=== PATIENT | female | born 1995 | race Two or more races ===

== ENCOUNTER → 2024-06-26 | Outpatient (CLI) | payer MEDICAID ==
[2024-06-26 15:44] LABS: Basophils # (auto) 0 10 ^3/uL (0-0.2); Basophils % (auto) 0.1 % (0.0-2.0); Eosinophils # (auto) 0 10 ^3/uL (0-0.8); Eosinophils % (auto) 0.3 % (0.0-7.0); Hematocrit 34.4 % (36.0-46.0); Hemoglobin 11.9 g/dL (12.2-16.2); Lymphocytes # (auto) 1.5 10 ^3/uL (0.4-5.4); Lymphocytes % (auto) 17.5 % (10.0-50.0); Mean Corpuscular Hgb Conc. 34.5 g/dL (32.0-36.0); Monocytes # (auto) 0.4 10 ^3/uL (0-1.3); Monocytes % (auto) 4.1 % (0.0-12.0); Neutrophils # (auto) 6.7 10 ^3/uL (1.6-8.6); Nucleated Red Blood Cells % 0.1 %; Platelet Count (auto) 281 10^3/uL (140-450); Red Blood Cells 4.09 10^6/uL (4.0-5.20); Red Cell Distribution Width 14.8 % (11.8-14.3); White Blood Cell 8.6 10^3/uL (4.4-10.8)
[2024-06-26 16:15] LABS: Cannabinoid Screen, Urine Neg (NEGATIVE)
[2024-06-26 16:16] LABS: Alanine Aminotransferase 24 U/L (7-40); Alkaline Phosphatase 68 U/L (46-116); Amphetamine Screen, Urine Neg (NEGATIVE); Anion Gap 10 (5-15); BUN/Creatinine Ratio 13.6 (10.0-20.0); Barbiturate Scree,Urine Neg (NEGATIVE); Benzodiazephine Screen, Urine Neg (NEGATIVE); Calcium 9.4 mg/dL (8.7-10.4); Carbon Dioxide 21 mmol/L (20-31); Chloride 106 mmol/L (98-107); Cocaine Screen, Urine Neg (NEGATIVE); Opiate Scree,Urine Neg (NEGATIVE); Phencyclidine Screen, Urine Neg (NEGATIVE); Potassium 3.6 mmol/L (3.5-5.1); Sodium 137 mmol/L (136-145)
[2024-06-26 16:17] LABS: Albumin 4.1 g/dL (3.2-4.8); Aspartate Aminotransferase 21 U/L (13-40); Total Protein 6.9 g/dL (5.7-8.2)
[2024-06-26 16:18] LABS: Bilirubin, Total 0.5 mg/dL (0.2-1.0)
[2024-06-26 16:20] LABS: Thyroid Stimulating Hormone 1.08 uIU/mL (0.55-4.78)
[2024-06-26 16:26] LABS: Blood Urea Nitrogen 6 mg/dL (9-23); Glucose 119 mg/dL (74-106)
[2024-06-26 16:32] LABS: Beta HCG, Quantitative 44955.6 mIU/mL (1.5-4.2)
[2024-06-26 17:21] LABS: Triglycerides 129 mg/dL (< 150)
[2024-06-26 17:23] LABS: Cholesterol 198 mg/dL (< 200)
[2024-06-26 18:15] LABS: HDL Cholesterol 74 mg/dL (40-59); LDL Cholesterol 105 mg/dL (< 100)
[2024-06-27 07:07] LABS: Varicella Zoster IgG Antibody Non Reactive (Non Reactive)
[2024-06-27 08:07] LABS: RPR Non Reactive (Non Reactive)
[2024-06-28 02:07] LABS: Chlamydia Trachomatis, NAA Negative (Negative); Neisseria gonorrhoeae, NAA Negative (Negative)
== END | disposition home or self-care (01) ==
LOC: LAB 14:51
PROVIDERS: ATTEND Obstetrics & Gynecology
DX: O23.40 Unspecified infection of urinary tract in pregnancy, unspecified trimester (principal); Z31.430 Encounter of female for testing for genetic disease carrier status for procreative management; N39.0 Urinary tract infection, site not specified; Z3A.00 Weeks of gestation of pregnancy not specified
CPT/HCPCS: 36415; 80053; 80061; 80307; 83036; 84439; 84443; 84702; 85025; 86592; 86703; 86762; 86780; 86787; 86850; 86900; 86901; 87086; 87340; 87902

== ENCOUNTER 2024-09-11 05:53 | Emergency (ER) | payer MEDICAID ==
[~2024-09-11] VITALS: Ht 157.5 cm; Wt 103.5 kg
--- NOTE | 2024-09-11 06:29 | ED.PDOC ---
Eye-HPI HPI Comments 29 y/o F, STEPHIE, presents to the ED for CC of flu-like symptoms. Patient states, she has been experiencing flu-like symptoms which include: cough, nasal congestion, right-sided earache, and headache x1day. Patient reports, that she is currently x25 weeks . Patient denies nausea, vomiting, fever, chest pain, or shortness of breath. No other symptoms or modifying factors present at this time. Chief Complaint: Flu like Time Seen by MD: 06:25 Reviewed Notes: Nurses Notes, Medications, Allergies Allergies: Coded Allergies: NO KNOWN ALLERGIES (Unverified , 09/11/24) Information Source: Patient Mode of Arrival: EMS Timing: Days Duration: Since onset Quality: Pain Lids: Normal Conjunctiva: Normal Cornea: Normal Pupils: Normal EOM: Normal Fundus: Normal Slit lamp exam: Normal Anterior chamber: Normal Mouth: Normal ENT Ear Exam: Normal Nose: Normal Sinuses: Normal Oropharynx: Normal Onset: Spontaneous Throat Exposed to: None Last Tetanus: Unknown Associated signs and symptoms: Nasal Symptoms, Ear Pain Past Medical History PAST MEDICAL HISTORY: Denies Surgical History: Denies all surgeries EFFICIENCY ENGINEER History: Denies all EFFICIENCY ENGINEER Hx Family History Family History: Unknown Social History Smoker: Non-Smoker Alcohol: Denies ETOH Use Drugs: Denies Drug Use Lives In: Home Constitutional: denies: chills, diaphoresis, fatigue, fever, malaise, sweats, weakness, others EENTM: reports: ear pain (right sided), nose congestion; denies: blurred vision, double vision, ear bleeding, ear discharge, ear drainage, ear ringing, eye pain, eye redness, hearing loss, mouth pain, mouth swelling, nasal discharge, nose bleeding, nose pain, photophobia, tearing, throat pain, throat swelling, voice changes, others Respiratory: reports: cough; denies: hemoptysis, orthopnea, SOB at rest, shortness of breath, SOB with excertion, stridor, wheezing, others Cardiovascular: denies: chest pain, dizzy spells, diaphoresis, Dyspnea on exertion, edema, irregular heart beat, left arm pain, lightheadedness, palpitations, PND, syncope, others Gastrointestinal: denies: abdomen distended, abdominal pain, blood streaked bowels, constipated, diarrhea, dysphagia, difficulty swallowing, hematemesis, melena, nausea, poor appetite, poor fluid intake, rectal bleeding, rectal pain, vomiting, others Genitourinary: denies: abnormal vagina bleeding, burning, dyspareunia, dysuria, flank pain, frequency, hematuria, incontinence, pain, , vagina discharge, urgency, others Neurological: reports: headache; denies: dizziness, fainting, left sided numbness, left sided weakness, numbness, paresthesia, pre-existing deficit, right sided numbness, right sided weakness, seizure, speech problems, tingling, tremors, weakness, others Musculoskeletal: denies: back pain, gout, joint pain, joint swelling, muscle pain, muscle stiffness, neck pain, others Integumetry: denies: bruises, change in color, change in hair/nails, dryness, laceration, lesions, lumps, rash, wounds, others Allergic/Immunocompromised: denies: Difficulty Healing, Frequent Infections, Hives, Itching, others Hematologic/Lymphatic: denies: anemia, blood clots, easy bleeding, easy bruising, swollen glands, others Endocrine: denies: excessive hunger, excessive sweating, excessive thirst, excessive urination, flushing, intolerance to cold, intolerance to heat, unexplained weight gain, unexplained weight loss, others Psychiatric: denies: anxiety, bipolar disorder, depression, hopeless, panic disorder, schizophrenia, sleepless, suicidal, others All Other Systems: Reviewed and Negative Physical Exam General Appearance: No Apparent Distress, Normal, Other () HEENT: Normal ENT Inspection, Pharynx Normal Neck: Full Range of Motion, Non-Tender, Normal, Normal Inspection Respiratory: Chest Non-Tender, Lungs Clear, No Accessory Muscle Use, No Respiratory Distress, Normal Breath Sounds Cardiovascular: No Edema, No Murmur, No Gallop, Normal Peripheral Pulses, Regular Rate/Rhythm Breast Exam: Deferred Gastrointestinal: No Organomegaly, Non Tender, No Pulsatile Mass, Normal Bowel Sounds, Soft Genitalia: Deferred Pelvic: Deferred, Other () Rectal: Deferred Extremities: No calf tenderness, Normal capillary refill, Normal inspection, Normal range of motion, Non-tender, No pedal edema Musculoskeletal : Apperance: Normal Neurologic: Alert, 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 Was a procedure done?: No EENT DIFF Eye: N/A Ear: Otitis Externa, Otitis Media, Pharyngitis, Sinusitis Sore Throat: Viral Pharyngitis, URI X-Ray, Labs, Meds, VS Vital Signs Date Time Temp Pulse Resp B/P (MAP) Pulse Ox O2 Delivery O2 Flow Rate FiO2 09/11/24 07:37 98.0 09/11/24 07:32 98.0 102 16 119/71 (87) 98 98.0 09/11/24 07:32 102 16 98 Room Air 09/11/24 05:53 98.6 103 12 123/79 (94) 97 98.6 Current Medications Medications (Trade) Dose Ordered Sig/Shalini Route Start Time Stop Time Status Last Admin Acetaminophen (Tylenol Tablet) 650 mg ONCE ONCE PO 09/11/24 07:15 09/11/24 07:17 DC 09/11/24 07:37 Time of 1ST Reevaluation: 06:55 Reevaluation 1ST: Unchanged Patient Education/Counseling: Diagnosis, Treatment Family Education/Counseling: No Family Present SEPSIS Sepsis Screen Date sepsis recognized/suspect: Sep 11, 2024 Time Sepsis recognized/suspect: 0553 Recent Procedure: No On Antibiotic Therapy: No Respiratory Rate >20: No Heart Rate >90: No Temp<36 C (96.8 F) or >38.3 C: No SBP <90 or MAP <65 mmHG: No New Acute Mental Status Change: No Is the patient on CPAP, BIPAP,: No Vital Signs Date Time Temp Pulse Resp B/P (MAP) Pulse Ox O2 Delivery O2 Flow Rate FiO2 09/11/24 07:37 98.0 09/11/24 07:32 98.0 102 16 119/71 (87) 98 98.0 09/11/24 07:32 102 16 98 Room Air 09/11/24 05:53 98.6 103 12 123/79 (94) 97 98.6 Medications Medications Dose Ordered Sig/Shalini Route Start Time Stop Time Status Last Admin Dose Admin Acetaminophen 650 mg ONCE ONCE PO 09/11/24 07:15 09/11/24 07:17 DC 09/11/24 07:37 Departure 1 Departure Time of Disposition: 08:30 (Patient likely with a viral syndrome. We will discharge patient home with outpatient follow up) Impression: Primary Impression: Acute viral syndrome Additional Impression: Qualified Codes: Z34.90 - Encounter for supervision of normal , unspecified, unspecified trimester Disposition: 01 HOME / SELF CARE / HOMELESS Condition: Stable Additional Instructions: You likely have a viral illness. It is important to stay well rested and well hydrated. You can take Tylenol as needed for pain and fever. For a sore throat you can drink warm tea with honey. You can take [id number] pseudoephedrine for nasal congestion. He should follow up with your regular doctor within 1 week to ensure you are doing better. If your symptoms worsen or you have any other concerns please return to the emergency room. Discharged With: Self Critical Care Note Critical Care Time?: No Stability Stability form required: No Heart Score Heart Score: Heart Score Response (Comments) Value History N/A 0 EKG N/A 0 Age N/A 0 Risk Factors N/A 0 Troponin N/A 0 Total 0 I personally scribed for ELIA KABA MD ([email or web address]) on 09/11/24 at 06:29. Electronically submitted by Jess Fine ([email or web address]). I personally scribed for ELIA KABA MD ([email or web address]) on 09/11/24 at 06:41. Electronically submitted by Jess Fine ([email or web address]). ELIA KABA MD Sep 11, 2024 06:29
[2024-09-11] MEDS: ACETAMINOPHEN 325 MG TAB PO ONE (07:37)
[2024-09-11] MEDS: PSEUDOEPHEDRINE HCL 30 MG TAB PO ONE (07:40)
[2024-09-11 08:43] VITALS: BP 122/78; PULSE 99; RESP 16; TEMP 98.1; O2SAT 98
== END 2024-09-11 08:44 | disposition home or self-care (01) ==
LOC: ER 05:53
DX: O98.512 Other viral diseases complicating pregnancy, second trimester (principal); Z3A.25 25 weeks gestation of pregnancy

== ENCOUNTER 2024-09-29 09:59 | Outpatient (CLI) | payer MEDICAID ==
[2024-09-29 10:40] LABS: Hematocrit 29.7 % (36.0-46.0); Hemoglobin 10.2 g/dL (12.2-16.2); Mean Corpuscular Hemoglobin 28.9 pg (28.0-32.0); Mean Corpuscular Volume 84.2 fL (80.0-100.0); Nucleated Red Blood Cells % 0.1 %
[2024-09-29 11:18] LABS: Alanine Aminotransferase 20 U/L (7-40); Albumin 3.7 g/dL (3.2-4.8); Alkaline Phosphatase 92 U/L (46-116); Anion Gap 8 (5-15); BUN/Creatinine Ratio 13.0 (10.0-20.0); Blood Urea Nitrogen 6 mg/dL (9-23); Calcium 9.1 mg/dL (8.7-10.4); Carbon Dioxide 23 mmol/L (20-31); Chloride 105 mmol/L (98-107); Glucose 80 mg/dL (74-106); Potassium 3.6 mmol/L (3.5-5.1); Sodium 136 mmol/L (136-145); Total Protein 6.4 g/dL (5.7-8.2)
[2024-09-29 11:19] LABS: Bilirubin, Total 0.5 mg/dL (0.2-1.0)
[2024-10-02 00:07] LABS: Chlamydia Trachomatis, NAA Negative (Negative); Neisseria gonorrhoeae, NAA Negative (Negative)
== END 2024-09-29 17:00 | disposition home or self-care (01) ==
LOC: LAB 09:59
PROVIDERS: ATTEND Obstetrics & Gynecology
DX: Z34.03 Encounter for supervision of normal first pregnancy, third trimester (principal); Z3A.28 28 weeks gestation of pregnancy
CPT/HCPCS: 36415; 80053; 82951; 83036; 85025; 86780; 86850; 86900; 86901

== ENCOUNTER 2024-10-12 00:08 | Emergency (ER) | payer MEDICAID ==
[~2024-10-12] VITALS: Ht 157.5 cm; Wt 101.8 kg
--- NOTE | 2024-10-12 02:17 | DVH ---
CLINICAL INDICATION: Fall injury TECHNIQUE: XY L WRIST 3+ VIEW XRAY Comparison: None FINDINGS/IMPRESSION: : There is no evidence of acute fracture or dislocation. Soft tissues are unremarkable.
--- NOTE | 2024-10-12 02:51 | ED.PDOC ---
Musculoskeletal HPI Comments 29-year-old female who came to ER for fall injury. Patient is a , approximately 30 weeks . States she had a ground level fall earlier, a she tripped, she extended her left hand to support her fall and protect her baby. Noted swelling and deformity of left wrist. No other injuries noted. REVIEW OF SYSTEMS: No fever, no chills, or fatigue HEENT: No sore throat, no earache, no congestion, no neck pain. Cardiac: No chest pain. No palpitations. Lungs: No shortness of breath, no cough. GI: No nausea, no vomiting, no diarrhea, no constipation, no abdominal pain : No dysuria, frequency, or urgency. No hematuria. Musculoskeletal: No joint pain , no joint swelling, no extremity edema. (+) left wrist pain Skin: No rash, no itching. Neuro: No headache, no dizziness, no weakness PHYSICAL EXAM: General: Awake, alert and oriented. No acute distress. Skin: Skin in warm, dry and intact without rashes or lesions. HEENT: The head is normocephalic and atraumatic. Conjunctivae are clear without exudates or hemorrhage. Sclera is non-icteric. Neck: Normal range of motion. No JVD. Cardiac: Regular rate Respiratory: No signs of respiratory distress. No Stridor. Extremities: Left wrist tender over thenar eminence, no snuffbox tenderness. No swelling, deformity, laceration, erythema. Sensation intact. Painful range of motion of left wrist movement. Neurological: The patient is awake, alert and oriented to person, place, and time with normal speech. Speech is clear. There is no facial asymmetry. Psychiatric: Appropriate mood and affect. Good judgement and insight. Chief Complaint: Fall Injury Time Seen by MD: 02:50 Reviewed Notes: Nurses Notes Allergies: Coded Allergies: NO KNOWN ALLERGIES (Unverified , 09/11/24) Home Meds Active Scripts Acetaminophen (Acetaminophen Er) 650 Mg Tab, 650 MG PO TIDPRN PRN, #15 TAB Prov:BERE PUGH MD 10/12/24 Information Source: Patient Mode of Arrival: Ambulatory Location: Left Extremity Location: Wrist Timing: Hours Severity: Moderate Able to Move Extremity: No Bear Weight: Limited Pain: Moderate Hand Dominance: Right Mechanism: FOOSH Circumstances: Fall Onset of Symptoms: After Trauma Symptoms: Swelling, Pain Associated signs and symptoms: Wrist pain (left) Past Medical History PAST MEDICAL HISTORY: Denies Surgical History: Denies all surgeries MANAGER MATERIALS MANAGEMENT History: Denies all MANAGER MATERIALS MANAGEMENT Hx 1 Para 0 Family History Family History: Reviewed,noncontributory to illness Social History Smoker: Non-Smoker Alcohol: Denies ETOH Use Drugs: Denies Drug Use Lives In: Home Was a procedure done? Was a procedure done?: No Differential Diagnosis EXT Differential Diagnosis: Fracture, Sprain, Dislocation, Strain X-Ray, Labs, Meds, VS Vital Signs Date Time Temp Pulse Resp B/P (MAP) Pulse Ox O2 Delivery O2 Flow Rate FiO2 10/12/24 03:37 84 14 98 Room Air 10/12/24 03:33 98.5 84 14 122/71 (88) 98 98.5 10/12/24 00:11 98.1 91 16 128/77 98 98.1 PROCEDURE(s): LWRI - L WRIST 3+ VIEW XRAY REASON: Fall injury ORDER NUMBER(s): [id number], ACCESSION NUMBER(s): [id number] CLINICAL INDICATION: Fall injury TECHNIQUE: XY L WRIST 3+ VIEW XRAY Comparison: None FINDINGS/IMPRESSION: : There is no evidence of acute fracture or dislocation. Soft tissues are unremarkable. Time of 1ST Reevaluation: 02:47 Reevaluation 1ST: Unchanged Patient Education/Counseling: Need For Follow Up Family Education/Counseling: No Family Present Departure 1 Departure Time of Disposition: 02:54 Impression: Primary Impression: Left wrist injury Disposition: 01 HOME / SELF CARE / HOMELESS Condition: Stable Additional Instructions: ED DISCHARGE INSTRUCTIONS Instructions: Please read all instructions provided in this packet carefully. Although you have been discharged from the Emergency Department, this does not mean that you have a "clean bill of health". No definitive diagnosis for your symptoms has been made today. It is possible that you are in the process of developing a serious illness. This is why you must return to the ED without fail if any new or worsening symptoms (especially if your symptoms include chest pain, trouble breathing, abdominal pain, fever, headache, confusion, trouble seeing, or trouble walking) It is also very important that you see a primary care provider (PCP) within the next 3-5 days to follow up. If you are unable to get an appointment, return to the ED for re-evaluation. e-Prescriptions Acetaminophen (Acetaminophen Er) 650 Mg Tab 650 MG PO TIDPRN PRN, #15 TAB Prov: BERE PUGH MD 10/12/24 Comments MDM: 29-year-old female with left wrist injury. Apparent fracture on exam or imaging. Patient neurovascularly on exam. Patient advised rest, elevation, advised to follow up with primary care provider for repeat imaging at symptoms do not improve. I reviewed the following notes from the pt's past medical encounters: N/A The following tests were ordered, and results were reviewed by me: (See diagnostic results section) The following test were independently interpreted by me: N/A Additional information was gathered from interviewing the following independent historians: N/A I reviewed and agreed with the following test results read by other providers: N/A I discussed treatments and results with patient Decision regarding hospitalization or escalation of hospital level of care: Risks and benefits of admission for further treatment of patient's condition was considered however due to patient's stable condition patient will be discharged to follow up closely or return to care for worsening of condition or inability to follow up. Critical Care Note Critical Care Time?: No Stability Stability form required: No Heart Score Heart Score: Heart Score Response (Comments) Value History N/A 0 EKG N/A 0 Age N/A 0 Risk Factors N/A 0 Troponin N/A 0 Total 0 I personally scribed for BERE PUGH MD ([email or web address]) on 10/12/24 at 02:51. Electronically submitted by Srikanth Yoo ([email or web address]). I personally scribed for BERE PUGH MD ([email or web address]) on 10/12/24 at 02:53. Electronically submitted by Srikanth Yoo ([email or web address]). BERE PUGH MD Oct 12, 2024 02:51
[2024-10-12] MEDS ORDERED: ACET650T12 PO (02:55)
[2024-10-12 03:33] VITALS: BP 122/71; TEMP 98.5
[2024-10-12 03:37] VITALS: PULSE 84; RESP 14; O2SAT 98
== END 2024-10-12 03:37 | disposition home or self-care (01) ==
LOC: ER 00:08
DX: O9A.213 Injury, poisoning and certain other consequences of external causes complicating pregnancy, third trimester (principal); S69.92XA Unspecified injury of left wrist, hand and finger(s), initial encounter; Z3A.30 30 weeks gestation of pregnancy; W19.XXXA Unspecified fall, initial encounter; Y93.89 Activity, other specified; Y92.89 Other specified places as the place of occurrence of the external cause; Y99.8 Other external cause status
CPT/HCPCS: 73110

== ENCOUNTER 2024-12-08 20:08 | Inpatient (IN) | payer MEDICAID ==
[~2024-12-08] VITALS: Ht 157.5 cm; Wt 108.0 kg
[~2024-12-08 20:08] MED LIST: ACET650T12 PO
[2024-12-08] MEDS ORDERED: LIDOCAINE 2%HCL (LOCAL ANESTH.) INJ 20ML MDV IJ PRN (21:15)
[2024-12-08] MEDS ORDERED: TERBUTALINE SULFATE 1 MG/ML 1ML VIAL SC PRN (21:30)
[2024-12-08] MEDS ORDERED: ONDANSETRON HCL 4 MG/2 ML VIAL IM PRN (21:30)
[2024-12-08] MEDS ORDERED: MORPHINE SULFATE 4 MG/ML SYR/VIAL IM PRN (21:30)
--- NOTE | 2024-12-08 21:41 | DVHHP2 ---
OB CC & HPI Date Date of Admission: Dec 08, 2024 Patient Identification: : 1 Para: 0 EDC: Dec 19, 2024 EGA: 38w3d Chief Complaints: Reason for admission: rupture of membranes Admission Nurse Assessment Rev: Yes History of Present Complaints L&D Admission Note Subjective 12/08/2024 @ 2115 29 y/o (0,0,0,0) @IUP 38w3d EGA presents to the Place with report of loss of mucus plug and leaking of fluid that started 12/08 @ 1400 Reports good movement, denies vaginal bleeding. 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 PMH: Denies PSH: Denies Medications: PNV, Fe Social Hist: Denies Objective PE:A&O x3, Well groomed Afebrile, VSS Heart & Lungs: Normal sound Abdomen: Gravid non- tender, fundal ht: Cephalic presentation by Indra maneuvers EFW SVE : CX /70/-1 SSE: Slight pooling, Nitrazine equivocal ASSESSMENT: 29 y/o (0,0,0,0) IUP at weeks 38w3d Rupture of Membranes @ 1400 Labor FHR baseline 130 bpm, moderate variability , Accelerations present, 15 bpm X 15 bpm no deceleration; Category tracing 1 Contractions 3q mins x 40-60 secs PLAN: Admit to labor and delivery IVF hydration May ambulate with Category 1 tracing Regular diet in latent labor Morphine Rest 10 mg IM with Zofran 4 mg IM PRN X1 dose in latent labor only. Pitocin Augmentation PRN Plan of care discussed with Patient and partner / family Process, Risks, benefits, of available management options discussed, including starting with expectant management, augmentation if indicated. Internal monitoring of UCs & FHT, AROM, amnioinfusion etc only when indicated. Patient agrees to starting with expectant management at this time; other interventions as indicated Informed Consent obtained Consent for possible blood transfusion obtained. All questions answered. Admit to Place for SROM & Latent Labor Routine L&D Admission orders EFM per policy Encourage ambulation and/exercises / frequent position change to facilitate labor & descent Supportive care Anticipate Past Medical History Cardiac: No pertinent Hx Pulmonary: No pertinent Hx Central Nervous System: No pertinent Hx GI: No pertinent Hx Hemotology/Oncology: Iron deficiency anemia Hepatobiliary: No pertinent Hx Psychiatric: No pertinent Hx Musculoskeletal: No pertinent Hx Rheumotologic: No pertinent Hx Infectious Disease: No peritnent Hx ENT: No pertinent Hx Renal/: No pertinent Hx Endocrine: No pertinent Hx Dermatology: No pertinent Hx Past Surgical History: No pertinent Hx OB History OB History Care: Good Care Ultrasounds: Normal mid trimester US Obstetrical Complications: None Medical Complications: None Other Concerns: Premature Rupture of Membranes Term Gestation Allergies: Coded Allergies: NO KNOWN ALLERGIES (Unverified , 09/11/24) Home Meds Active Scripts Acetaminophen (Acetaminophen Er) 650 Mg Tab, 650 MG PO TIDPRN PRN, #15 TAB Prov:BERE PUGH MD 10/12/24 Current Medications PNV/ Fe 325 Family & Social History Family/Social History Blood Type: O+ Rubella: not immune RPR/VDRL: Negative GBS Status: Negative HBsAG: Negative Review of Systems Constitutional: No symptom reported Ears, Nose, & Throat: No symptom reported Eyes: No symptom reported, Other (Wear's Corrective Glasses ) Pulmonary/Respiratory: No symptom reported Cardiovascular: No symptom reported Gastrointestinal: No symptom reported Genitourinary: No symptom reported Musculoskeletal: No symptom reported Skin: No symptom reported Psychiatric: No symptom reported Endocrine: No symptom reported Hemotologic/Lymphatic: No symptom reported OB Admission Exam Physical Exam HEENT: NCAT Heart: Rhythm Normal Lungs: Clear Abdomen: Gravid Extremities: Normal Reflexes: Normal Cervical Dilatation: 1cm Effacement: 75% Station: -1 Membranes: Ruptured Amniotic Fluid: Clear Heart Rate: 130's Accelerations: Accelerations Present Decelerations: No Decelerations Short Term Variability: Present 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
[2024-12-08 22:11] LABS: Fern Testing Positive
[2024-12-08] MEDS ORDERED: NALBUPHINE HCL 10 MG/1ml INJECTION IV PRN (22:15)
[2024-12-08] MEDS ORDERED: ONDANSETRON HCL 4 MG/2 ML VIAL IV PRN (22:15)
[2024-12-08 22:18] LABS: Urine Amorphous Crystal FEW /hpf (None Seen); Urine Protein, UAD 1+ (Negative)
[2024-12-08 22:28] LABS: Amphetamine Screen, Urine Neg (NEGATIVE); Barbiturate Scree,Urine Neg (NEGATIVE); Benzodiazephine Screen, Urine Neg (NEGATIVE); Cannabinoid Screen, Urine Neg (NEGATIVE); Cocaine Screen, Urine Neg (NEGATIVE); Opiate Scree,Urine Neg (NEGATIVE); Phencyclidine Screen, Urine Neg (NEGATIVE)
[2024-12-08 22:29] LABS: Hematocrit 30.3 % (36.0-46.0); Hemoglobin 10.2 g/dL (12.2-16.2); Mean Corpuscular Hemoglobin 26.3 pg (28.0-32.0); Mean Corpuscular Volume 78.2 fL (80.0-100.0); Nucleated Red Blood Cells % 0.0 %
[2024-12-08 22:45] LABS: Alanine Aminotransferase 11 U/L (7-40); Albumin 3.7 g/dL (3.2-4.8); Anion Gap 13 (5-15); BUN/Creatinine Ratio 14.6 (10.0-20.0); Calcium 8.7 mg/dL (8.7-10.4); Chloride 106 mmol/L (98-107); Glucose 81 mg/dL (74-106); Potassium 3.7 mmol/L (3.5-5.1); Sodium 138 mmol/L (136-145); Total Protein 6.8 g/dL (5.7-8.2)
[2024-12-08 22:46] LABS: Bilirubin, Total 0.7 mg/dL (0.2-1.0)
[2024-12-08 22:48] LABS: INR 0.94 (0.9-1.15); Partial Thromboplastin Time 27.1 SEC (24.5-34.5); Prothrombin Time 10.0 sec (9.3-11.8)
[2024-12-08 22:51] LABS: Alkaline Phosphatase 159 U/L (46-116); Blood Urea Nitrogen 7 mg/dL (9-23); Carbon Dioxide 19 mmol/L (20-31)
[2024-12-08] MEDS: ceFAZolin 2 GM/D5W50ml 50 ML IV ONE (22:55)
[2024-12-09] MEDS: LACTATED RINGER'S 1,000 ML IV SCH (05:15)
--- NOTE | 2024-12-09 05:44 | DVHPN2 ---
CNM Labor Progress Note Date and Time Seen Date Seen: Dec 09, 2024 Time Seen: 05:30 Subjective Subjective Comment Subjective 12/09/2024 @ 0530 29 y/o (0,0,0,0) @IUP 38w3d EGA presents to the Place with report of loss of mucus plug and leaking of fluid that started 12/08 @ 1400 Reports good movement, denies vaginal bleeding. Reports mild cramping, appear calm and collective during triage assessment Received care with Dr Reed LMP: 03/16/2024 EDC: 12/19/2024 by LMP c/w 12w4d weeks US Started Augmentation of labor with Pitocin Breathing with contractions Open to receiving and epidural at the change of shift HPI care with Dr Reed Wt gain in Pregnacy: Lbs 26 lbs - normal course thus far / complicated by anemia which is taking Fe Blood Type : O positive RPR: Non Reactive GBS status: Negative 11/19/2024 Rubella: Non Immune Other labs Earliest US Date: 06/2024 US EGA: 12w4d LEIGHANN: 12/19/2024 Last OB US Date: 37w0d EFW 7lb 2 oz Past History 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 PMH: Denies PSH: Denies Medications: PNV, Fe Social Hist: Denies Objective PE:A&O x3, Well groomed Afebrile, VSS Heart & Lungs: Normal sound Abdomen: Gravid non- tender, fundal ht: Cephalic presentation by Indra maneuvers EFW SVE : CX 1/70/-1 SSE: Slight pooling, Nitrazine equivocal ASSESSMENT: 29 y/o (0,0,0,0) IUP at weeks 38w3d Rupture of Membranes @ 1400 Labor FHR baseline 120 bpm, moderate variability , Accelerations present, 15 bpm X 15 bpm no deceleration; Category tracing 1 Contractions 2-4q mins x 40-60 secs PLAN: Pitocin augmentation started @ 0330 per protocol Currently @ 3mu/min tracing category 1 Continue with P.O.C Will transfer care to Dr Reed for the oncoming shift Admit to labor and delivery IVF hydration May ambulate with Category 1 tracing Regular diet in latent labor Morphine Rest 10 mg IM with Zofran 4 mg IM PRN X1 dose in latent labor only. Plan of care discussed with Patient and partner / family Process, Risks, benefits, of available management options discussed, including starting with expectant management, augmentation if indicated. Internal monitoring of UCs & FHT, AROM, amnioinfusion etc only when indicated. Patient agrees to starting with Pitocin augmentation per protocol Informed Consent obtained Consent for possible blood transfusion obtained. All questions answered. Admit to Place for SROM & Latent Labor Routine L&D Admission orders EFM per policy Encourage ambulation and/exercises / frequent position change to facilitate labor & descent Supportive care Anticipate Monitoring Method Monitoring Method: External Heart Rate Heart Rate Baseline: 125 Heart Rate Variability: Moderate Presence of FHR Accelerations: Yes Presence of FHR Decelerations: No Changes in Trends of Patterns: No Are all 5 Components of the FH: Yes Contractions Contractions Frequency: Occasional Duration of Contraction: 3 Contractions Intensity: Moderate Contractions Resting Tone: Relaxed Membranes Membranes: Ruptured Amniotic Fluid Color: Clear Vaginal Exam Vag Exam Deferred: Yes Lab Results Lab Results Current Medications Medications (Trade) Dose Ordered Sig/Shalini Start Time Stop Time Status Last Admin Dose Admin Lactated Ringer's 1,000 ml @ 125 mls/hr Q8H 12/08/24 21:15 Witch Melinda (Tucks) 1 pad PRN PRN 12/08/24 21:15 Sodium Lauryl Sulfate (Phisoderm) 240 ml PRN PRN 12/08/24 21:15 Benzocaine (Dermoplast) 1 applic PRN PRN 12/08/24 21:15 Lidocaine HCl (Xylocaine) 40 ml ONCE PRN 12/08/24 21:15 12/08/24 23:45 DC Morphine Sulfate 10 mg ONCE PRN 12/08/24 21:30 12/08/24 22:06 DC Ondansetron HCl (Zofran) 4 mg ONCE PRN 12/08/24 21:30 12/08/24 22:06 DC Oxytocin 1,000 ml @ 6 ml/hr Q24H 12/08/24 21:30 Terbutaline Sulfate (Brethine Inj) 0.25 mg ONCE PRN 12/08/24 21:30 Oxytocin 500 ml @ 999 mls/hr Q31M ONCE 12/08/24 21:30 12/08/24 22:00 DC Oxytocin 500 ml @ 125 mls/hr Q4H ONCE 12/08/24 22:00 12/09/24 01:59 DC Nalbuphine HCl (Nubain) 10 mg Q4HP PRN 12/08/24 22:15 Cefazolin Sodium 50 ml @ 100 mls/hr Q8HR 12/09/24 06:00 Ondansetron HCl (Zofran) 4 mg Q4HPRN PRN 12/08/24 22:15 Cefazolin Sodium/ Dextrose 50 ml @ 50 mls/hr ONCE ONCE 12/08/24 22:30 12/08/24 23:29 DC 12/08/24 22:55 50 MLS/HR Laboratory Tests Test 12/08/24 22:10 12/08/24 21:00 12/08/24 20:50 Range/Units White Blood Count 10.8 4.4-10.8 10^3/uL Red Blood Count 3.87 L 4.0-5.20 10^6/uL Hemoglobin 10.2 L 12.2-16.2 g/dL Hematocrit 30.3 L 36.0-46.0 % Mean Corpuscular Volume 78.2 L 80.0-100.0 fL Mean Corpuscular Hemoglobin 26.3 L 28.0-32.0 pg Mean Corpuscular Hemoglobin Concent 33.6 32.0-36.0 g/dL Red Cell Distribution Width 16.4 H 11.8-14.3 % Platelet Count 286 140-450 10^3/uL Mean Platelet Volume 8.7 6.9-10.8 fL Neutrophils (%) (Auto) 80.3 H 37.0-80.0 % Lymphocytes (%) (Auto) 14.4 10.0-50.0 % Monocytes (%) (Auto) 4.9 0.0-12.0 % Eosinophils (%) (Auto) 0.2 0.0-7.0 % Basophils (%) (Auto) 0.2 0.0-2.0 % Neutrophils # (Auto) 8.7 H 1.6-8.6 10 ^3/uL Lymphocytes # (Auto) 1.6 0.4-5.4 10 ^3/uL Monocytes # (Auto) 0.5 0-1.3 10 ^3/uL Eosinophils # (Auto) 0 0-0.8 10 ^3/uL Basophils # (Auto) 0 0-0.2 10 ^3/uL Nucleated Red Blood Cells 0.0 % Prothrombin Time 10.0 9.3-11.8 sec Prothrombin Time INR 0.94 0.9-1.15 Activated Partial Thromboplast Time 27.1 24.5-34.5 SEC Sodium Level 138 136-145 mmol/L Potassium Level 3.7 3.5-5.1 mmol/L Chloride Level 106 98-107 mmol/L Carbon Dioxide Level 19 L 20-31 mmol/L Anion Gap 13 5-15 Blood Urea Nitrogen 7 L 9-23 mg/dL Creatinine 0.48 L 0.550-1.02 mg/dL Glomerular Filtration Rate Calc 133 >90 mL/min BUN/Creatinine Ratio 14.6 10.0-20.0 Serum Glucose 81 74-106 mg/dL Calcium Level 8.7 8.7-10.4 mg/dL Total Bilirubin 0.7 0.2-1.0 mg/dL Aspartate Amino Transferase (AST) 22 13-40 U/L Alanine Aminotransferase (ALT) 11 7-40 U/L Alkaline Phosphatase 159 H 46-116 U/L Total Protein 6.8 5.7-8.2 g/dL Albumin 3.7 3.2-4.8 g/dL Treponema pallidum Antibody Non-reactive Negative Hepatitis C Antibody Negative Negative Urine Color Yellow Yellow Urine Clarity Turbid H Clear Urine pH 6.5 5.0-9.0 Urine Specific [place] 1.026 1.001-1.035 Urine Protein 1+ H Negative Urine Ketones Negative Negative Urine Blood Negative Negative /uL Urine Nitrite Negative Negative Urine Bilirubin Negative Negative Urine Urobilinogen 2 H Negative mg/dL Urine Leukocyte Esterase 1+ Negative /uL Urine RBC 1 0 - 4 /hpf Urine Microscopic WBC 15 H 0-5 /HPF Urine Squamous Epithelial Cells Mod <5 /hpf Urine Amorphous Crystals Few None Seen /hpf Urine Bacteria Few H None Seen /hpf Urine Mucus Few None Seen Urine Glucose Normal Normal mg/dL Urine Opiates Screen Neg NEGATIVE Urine Fentanyl Screen Neg NEGATIVE Urine Barbiturates Screen Neg NEGATIVE Urine Phencyclidine Screen Neg NEGATIVE Urine Amphetamines Screen Neg NEGATIVE Urine Benzodiazepines Screen Neg NEGATIVE Urine Cocaine Screen Neg NEGATIVE Urine Cannabinoids Screen Neg NEGATIVE Amniotic Fluid Ferning Test Positive Placental Fzqyy-[id number]-Sjhchwagnxxfo Positive Consulting with Consulting with: None Plan Plan discussed with: Patient Visit Coding OBGYN Date of Service: Dec 09, 2024 Billing Provider: CHELSIE MC CNM CERTIFIED HYPERBARIC TECHNOLOGIST Common Visit Codes: [id number] OBS CARE (MOD) CHELSIE MCWIct 2024 05:44
[2024-12-09] MEDS: NALOXONE HCL 0.4 MG/ML VIAL IV ONE (06:30)
[2024-12-09] MEDS: LACT. RINGERS/OXYTOCIN 20UNITS 1,000 ML IV SCH (07:30)
[2024-12-09] MEDS: ROPIVACAINE HCL 100 ML ONE ×2 (07:31→14:48)
[2024-12-09] MEDS: ceFAZolin 1GM/50ML 50 ML IV SCH ×2 (07:34→15:03)
[2024-12-09] MEDS: LACTATED RINGER'S 1,000 ML IV ONE (07:36)
--- NOTE | 2024-12-09 08:22 | DVHPN2 ---
CNM Labor Progress Note Date and Time Seen Date Seen: Dec 09, 2024 Time Seen: 08:06 Subjective Subjective Comment Pt is asleep, epidural in place. Objective Vital Signs VSS, see chart EFW on 12/02: 7lbs 2oz Ancef IVPB for SROM prophylatic SROM at 1600 on 12/08/24, clear fluid Monitoring Method Monitoring Method: External Heart Rate Heart Rate Baseline: 135 Heart Rate Variability: Moderate Presence of FHR Accelerations: Yes Presence of FHR Decelerations: No Are all 5 Components of the FH: Yes Contractions Contractions Frequency: Other (q1-3 min) Duration of Contraction: 70 Contractions Intensity: Moderate Contractions Resting Tone: Relaxed Membranes Membranes: Ruptured Amniotic Fluid Color: Clear Vaginal Exam Vag Exam Deferred: Yes (SVE by RN) Vaginal Exam Dilation: 3 Vaginal Exam Effacement: 70 Vaginal Exam Station: -1 Vaginal Exam Presentation: VTX Medications Medications - Pitocin: Yes (6mu) Medication - Epidural: Yes Lab Results Lab Results Current Medications Medications (Trade) Dose Ordered Sig/Shalini Start Time Stop Time Status Last Admin Dose Admin Lactated Ringer's 1,000 ml @ 125 mls/hr Q8H 12/08/24 21:15 12/09/24 07:35 125 MLS/HR Witch Melinda (Tucks) 1 pad PRN PRN 12/08/24 21:15 Sodium Lauryl Sulfate (Phisoderm) 240 ml PRN PRN 12/08/24 21:15 Benzocaine (Dermoplast) 1 applic PRN PRN 12/08/24 21:15 Lidocaine HCl (Xylocaine) 40 ml ONCE PRN 12/08/24 21:15 12/08/24 23:45 DC Morphine Sulfate 10 mg ONCE PRN 12/08/24 21:30 12/08/24 22:06 DC Ondansetron HCl (Zofran) 4 mg ONCE PRN 12/08/24 21:30 12/08/24 22:06 DC Oxytocin 1,000 ml @ 6 ml/hr Q24H 12/08/24 21:30 12/09/24 07:30 3 ML/HR Terbutaline Sulfate (Brethine Inj) 0.25 mg ONCE PRN 12/08/24 21:30 Oxytocin 500 ml @ 999 mls/hr Q31M ONCE 12/08/24 21:30 12/08/24 22:00 DC Oxytocin 500 ml @ 125 mls/hr Q4H ONCE 12/08/24 22:00 12/09/24 01:59 DC Nalbuphine HCl (Nubain) 10 mg Q4HP PRN 12/08/24 22:15 Cefazolin Sodium 50 ml @ 100 mls/hr Q8HR 12/09/24 06:00 12/09/24 07:34 100 MLS/HR Ondansetron HCl (Zofran) 4 mg Q4HPRN PRN 12/08/24 22:15 Cefazolin Sodium/ Dextrose 50 ml @ 50 mls/hr ONCE ONCE 12/08/24 22:30 12/08/24 23:29 DC 12/08/24 22:55 50 MLS/HR Naloxone HCl (Narcan) 0.2 mg PRN ONCE 12/09/24 06:30 12/09/24 06:31 DC Ephedrine Sulfate (ePHEDrine SULFATE) 10 mg PRN ONCE 12/09/24 06:30 12/09/24 06:31 DC Lactated Ringer's 1,000 ml @ 1,000 mls/hr Q1H ONCE 12/09/24 06:30 12/09/24 07:29 DC 12/09/24 07:36 1,000 MLS/HR Laboratory Tests Test 12/08/24 22:10 12/08/24 21:00 12/08/24 20:50 Range/Units White Blood Count 10.8 4.4-10.8 10^3/uL Red Blood Count 3.87 L 4.0-5.20 10^6/uL Hemoglobin 10.2 L 12.2-16.2 g/dL Hematocrit 30.3 L 36.0-46.0 % Mean Corpuscular Volume 78.2 L 80.0-100.0 fL Mean Corpuscular Hemoglobin 26.3 L 28.0-32.0 pg Mean Corpuscular Hemoglobin Concent 33.6 32.0-36.0 g/dL Red Cell Distribution Width 16.4 H 11.8-14.3 % Platelet Count 286 140-450 10^3/uL Mean Platelet Volume 8.7 6.9-10.8 fL Neutrophils (%) (Auto) 80.3 H 37.0-80.0 % Lymphocytes (%) (Auto) 14.4 10.0-50.0 % Monocytes (%) (Auto) 4.9 0.0-12.0 % Eosinophils (%) (Auto) 0.2 0.0-7.0 % Basophils (%) (Auto) 0.2 0.0-2.0 % Neutrophils # (Auto) 8.7 H 1.6-8.6 10 ^3/uL Lymphocytes # (Auto) 1.6 0.4-5.4 10 ^3/uL Monocytes # (Auto) 0.5 0-1.3 10 ^3/uL Eosinophils # (Auto) 0 0-0.8 10 ^3/uL Basophils # (Auto) 0 0-0.2 10 ^3/uL Nucleated Red Blood Cells 0.0 % Prothrombin Time 10.0 9.3-11.8 sec Prothrombin Time INR 0.94 0.9-1.15 Activated Partial Thromboplast Time 27.1 24.5-34.5 SEC Sodium Level 138 136-145 mmol/L Potassium Level 3.7 3.5-5.1 mmol/L Chloride Level 106 98-107 mmol/L Carbon Dioxide Level 19 L 20-31 mmol/L Anion Gap 13 5-15 Blood Urea Nitrogen 7 L 9-23 mg/dL Creatinine 0.48 L 0.550-1.02 mg/dL Glomerular Filtration Rate Calc 133 >90 mL/min BUN/Creatinine Ratio 14.6 10.0-20.0 Serum Glucose 81 74-106 mg/dL Calcium Level 8.7 8.7-10.4 mg/dL Total Bilirubin 0.7 0.2-1.0 mg/dL Aspartate Amino Transferase (AST) 22 13-40 U/L Alanine Aminotransferase (ALT) 11 7-40 U/L Alkaline Phosphatase 159 H 46-116 U/L Total Protein 6.8 5.7-8.2 g/dL Albumin 3.7 3.2-4.8 g/dL Treponema pallidum Antibody Non-reactive Negative Hepatitis C Antibody Negative Negative Urine Color Yellow Yellow Urine Clarity Turbid H Clear Urine pH 6.5 5.0-9.0 Urine Specific [place] 1.026 1.001-1.035 Urine Protein 1+ H Negative Urine Ketones Negative Negative Urine Blood Negative Negative /uL Urine Nitrite Negative Negative Urine Bilirubin Negative Negative Urine Urobilinogen 2 H Negative mg/dL Urine Leukocyte Esterase 1+ Negative /uL Urine RBC 1 0 - 4 /hpf Urine Microscopic WBC 15 H 0-5 /HPF Urine Squamous Epithelial Cells Mod <5 /hpf Urine Amorphous Crystals Few None Seen /hpf Urine Bacteria Few H None Seen /hpf Urine Mucus Few None Seen Urine Glucose Normal Normal mg/dL Urine Opiates Screen Neg NEGATIVE Urine Fentanyl Screen Neg NEGATIVE Urine Barbiturates Screen Neg NEGATIVE Urine Phencyclidine Screen Neg NEGATIVE Urine Amphetamines Screen Neg NEGATIVE Urine Benzodiazepines Screen Neg NEGATIVE Urine Cocaine Screen Neg NEGATIVE Urine Cannabinoids Screen Neg NEGATIVE Amniotic Fluid Ferning Test Positive Placental [place]-1-Ssttecxlbomkz Positive Assessment Assessment A: 29yo IUP@38.4wks Labor SROM, clear fluid Category I EFM GBS negative Plan Plan P: Continue with IV pitocin titration Continue Ancef IVPB for SROM prophylatic monitoring per order Pain mgmt - epidural in place Frequent position changes in bed encouraged Limit SVE unless necessary Intrauterine resuscitation PRN Anticipate ANGIE will consult with Dr. Reed PRN Plan discussed with: Patient Visit Coding OBGYN Date of Service: Dec 09, 2024 Billing Provider: HARESH TREVIÑO CNM [employer]ILL Common Visit Codes: [id number] INP/OBS CARE(MOD) [employer] Procedure Codes: [id number] NON-STRESS TEST HARESH TREVIÑO CNM Dec 09, 2024 08:22
--- NOTE | 2024-12-09 14:31 | DVHPN2 ---
[facility] Labor Progress Note Date and Time Seen Date Seen: Dec 09, 2024 Time Seen: 12:40 Subjective Patient reports: No new complaints Objective Vital Signs VSS, see CPN Monitoring Method Monitoring Method: External Heart Rate Heart Rate Baseline: 145 Heart Rate Variability: Moderate Presence of FHR Accelerations: Yes Presence of FHR Decelerations: Yes Heart Rate Type of Decel: Early Deceleraions Are all 5 Components of the FH: Yes Contractions Contractions Frequency: Other (q1.5-3.5 min) Duration of Contraction: 90 Membranes Membranes: Ruptured Amniotic Fluid Color: Clear Vaginal Exam Vag Exam Deferred: Yes (SVE by RN) Vaginal Exam Dilation: 7 Vaginal Exam Effacement: 90 Vaginal Exam Station: -1 Vaginal Exam Presentation: VTX Medications Medications - Pitocin: Yes (6mu) Medication - Epidural: Yes Lab Results Lab Results Current Medications Medications (Trade) Dose Ordered Sig/Shalini Start Time Stop Time Status Last Admin Dose Admin Lactated Ringer's 1,000 ml @ 125 mls/hr Q8H 12/08/24 21:15 12/09/24 07:35 125 MLS/HR Witch Melinda (Tucks) 1 pad PRN PRN 12/08/24 21:15 Sodium Lauryl Sulfate (Phisoderm) 240 ml PRN PRN 12/08/24 21:15 Benzocaine (Dermoplast) 1 applic PRN PRN 12/08/24 21:15 Lidocaine HCl (Xylocaine) 40 ml ONCE PRN 12/08/24 21:15 12/08/24 23:45 DC Morphine Sulfate 10 mg ONCE PRN 12/08/24 21:30 12/08/24 22:06 DC Ondansetron HCl (Zofran) 4 mg ONCE PRN 12/08/24 21:30 12/08/24 22:06 DC Oxytocin 1,000 ml @ 6 ml/hr Q24H 12/08/24 21:30 12/09/24 07:30 3 ML/HR Terbutaline Sulfate (Brethine Inj) 0.25 mg ONCE PRN 12/08/24 21:30 Oxytocin 500 ml @ 999 mls/hr Q31M ONCE 12/08/24 21:30 12/08/24 22:00 DC Oxytocin 500 ml @ 125 mls/hr Q4H ONCE 12/08/24 22:00 12/09/24 01:59 DC Nalbuphine HCl (Nubain) 10 mg Q4HP PRN 12/08/24 22:15 Cefazolin Sodium 50 ml @ 100 mls/hr Q8HR 12/09/24 06:00 12/09/24 07:34 100 MLS/HR Ondansetron HCl (Zofran) 4 mg Q4HPRN PRN 12/08/24 22:15 Cefazolin Sodium/ Dextrose 50 ml @ 50 mls/hr ONCE ONCE 12/08/24 22:30 12/08/24 23:29 DC 12/08/24 22:55 50 MLS/HR Naloxone HCl (Narcan) 0.2 mg PRN ONCE 12/09/24 06:30 12/09/24 06:31 DC Ephedrine Sulfate (ePHEDrine SULFATE) 10 mg PRN ONCE 12/09/24 06:30 12/09/24 06:31 DC Lactated Ringer's 1,000 ml @ 1,000 mls/hr Q1H ONCE 12/09/24 06:30 12/09/24 07:29 DC 12/09/24 07:36 1,000 MLS/HR Laboratory Tests Test 12/08/24 22:10 12/08/24 21:00 12/08/24 20:50 Range/Units White Blood Count 10.8 4.4-10.8 10^3/uL Red Blood Count 3.87 L 4.0-5.20 10^6/uL Hemoglobin 10.2 L 12.2-16.2 g/dL Hematocrit 30.3 L 36.0-46.0 % Mean Corpuscular Volume 78.2 L 80.0-100.0 fL Mean Corpuscular Hemoglobin 26.3 L 28.0-32.0 pg Mean Corpuscular Hemoglobin Concent 33.6 32.0-36.0 g/dL Red Cell Distribution Width 16.4 H 11.8-14.3 % Platelet Count 286 140-450 10^3/uL Mean Platelet Volume 8.7 6.9-10.8 fL Neutrophils (%) (Auto) 80.3 H 37.0-80.0 % Lymphocytes (%) (Auto) 14.4 10.0-50.0 % Monocytes (%) (Auto) 4.9 0.0-12.0 % Eosinophils (%) (Auto) 0.2 0.0-7.0 % Basophils (%) (Auto) 0.2 0.0-2.0 % Neutrophils # (Auto) 8.7 H 1.6-8.6 10 ^3/uL Lymphocytes # (Auto) 1.6 0.4-5.4 10 ^3/uL Monocytes # (Auto) 0.5 0-1.3 10 ^3/uL Eosinophils # (Auto) 0 0-0.8 10 ^3/uL Basophils # (Auto) 0 0-0.2 10 ^3/uL Nucleated Red Blood Cells 0.0 % Prothrombin Time 10.0 9.3-11.8 sec Prothrombin Time INR 0.94 0.9-1.15 Activated Partial Thromboplast Time 27.1 24.5-34.5 SEC Sodium Level 138 136-145 mmol/L Potassium Level 3.7 3.5-5.1 mmol/L Chloride Level 106 98-107 mmol/L Carbon Dioxide Level 19 L 20-31 mmol/L Anion Gap 13 5-15 Blood Urea Nitrogen 7 L 9-23 mg/dL Creatinine 0.48 L 0.550-1.02 mg/dL Glomerular Filtration Rate Calc 133 >90 mL/min BUN/Creatinine Ratio 14.6 10.0-20.0 Serum Glucose 81 74-106 mg/dL Calcium Level 8.7 8.7-10.4 mg/dL Total Bilirubin 0.7 0.2-1.0 mg/dL Aspartate Amino Transferase (AST) 22 13-40 U/L Alanine Aminotransferase (ALT) 11 7-40 U/L Alkaline Phosphatase 159 H 46-116 U/L Total Protein 6.8 5.7-8.2 g/dL Albumin 3.7 3.2-4.8 g/dL Treponema pallidum Antibody Non-reactive Negative Hepatitis C Antibody Negative Negative Urine Color Yellow Yellow Urine Clarity Turbid H Clear Urine pH 6.5 5.0-9.0 Urine Specific [place] 1.026 1.001-1.035 Urine Protein 1+ H Negative Urine Ketones Negative Negative Urine Blood Negative Negative /uL Urine Nitrite Negative Negative Urine Bilirubin Negative Negative Urine Urobilinogen 2 H Negative mg/dL Urine Leukocyte Esterase 1+ Negative /uL Urine RBC 1 0 - 4 /hpf Urine Microscopic WBC 15 H 0-5 /HPF Urine Squamous Epithelial Cells Mod <5 /hpf Urine Amorphous Crystals Few None Seen /hpf Urine Bacteria Few H None Seen /hpf Urine Mucus Few None Seen Urine Glucose Normal Normal mg/dL Urine Opiates Screen Neg NEGATIVE Urine Fentanyl Screen Neg NEGATIVE Urine Barbiturates Screen Neg NEGATIVE Urine Phencyclidine Screen Neg NEGATIVE Urine Amphetamines Screen Neg NEGATIVE Urine Benzodiazepines Screen Neg NEGATIVE Urine Cocaine Screen Neg NEGATIVE Urine Cannabinoids Screen Neg NEGATIVE Amniotic Fluid Ferning Test Positive Placental [place]-2-Jzjujvhpydmad Positive Assessment Assessment A: 29yo IUP@38.4wks Active Labor SROM, clear fluid Category I EFM GBS negative Plan Plan P: Continue with IV pitocin titration Continue Ancef IVPB for SROM prophylatic monitoring per order Pain mgmt - epidural in place Frequent position changes in bed encouraged Limit SVE unless necessary Intrauterine resuscitation PRN Anticipate CNM will consult with Dr. Reed PRN Plan discussed with: Patient Visit Coding OBGYN Date of Service: Dec 09, 2024 Billing Provider: HARESH TREVIÑO CNM SHEET METAL LAYOUT MECHANIC Common Visit Codes: [id number] INP/OBS CARE(MOD) HARESH TREVIÑO CNM Dec 09, 2024 14:31
[2024-12-09] MEDS: WITCH HAZEL-GLYCERIN PAD TOP PRN (14:44)
[2024-12-09] MEDS: DERMOPLAST 60ML BOTTLE TOP PRN (14:44)
[2024-12-09] MEDS: PHISODERM TOP SOLN 240ML BTL TOP PRN (14:45)
[2024-12-09] MEDS ORDERED: GENTAMICIN PER PHARMACY 0 ML IV SCH (17:30)
[2024-12-09] MEDS: ACETAMINOPHEN 500 MG TAB or CAP PO STA (17:31)
--- NOTE | 2024-12-09 19:00 | LDN2 ---
Labor and Delivery Note Date 12/09/24 Age 29 1 Para 1, now AB 0 EDC 12-19-24 EGA 38.4 Diagnosis SROM induction then Vaginal Delivery: VTX Vacuum Assisted: No Placenta: Spontaneous Sex: Female Weight 6lb 14oz 3115g Apgars 8/9 Nuchal Cord Transected: No Amniotic Fluid: Clear Anesthesia Epidural and lidocaine Episiotomy: No Extension: Yes (2nd degree vaginal) Repaired with 3-0 Vicryl EBL QBL: 250 Labs Laboratory Tests 06/26/24 14:44: Hepatitis B Surface Antigen Negative, HIV (1&2) Antibody Negative, Rubella Antibody Negative Blood Bank 12/08/24 22:10: Blood Type O POSITIVE Complications Chorioamnionitis, will continue abx for 24 hours Conditions Stable Bleach Boiler Filler Somu Comments/Significant Med Cash TXA administered prior to delivery. At 1808 this 29yo now delivered a viable Female infant by w/ APGARS 8/9. LOP. Infant placed skin to skin on pts chest. Cord clamped and cut after pulsation ceased. Cord blood sent. Intact 3-vessel cord placenta delivered spontaneously, Selam. Pitocin IV bolus started. Placenta sent to pathology. Patient had epidural and local anesthesia. Cervix/vagina inspected (intact). Second degree perineal laceration with right labial extension present which was repaired with 3-0 vicryl suture. Manual sweep performed, uterus cleared of all clots. Methergine IM given. VSS. Fundus firm at U, midline, light lochia. QBL 250ml. Patient to care and baby to couplet care, both stable. Visit Coding OBGYN Date of Service: Dec 09, 2024 Billing Provider: HARESH TREVIÑO CNM PROFESSIONAL ATHLETES COACH Common Visit Codes: PROCEDURE ONLY PROFESSIONAL ATHLETES COACH Procedure Codes: [id number] DEL INCLUDING MELANIE BARKLEY STUDENTMDW Dec 09, 2024 19:00
[2024-12-09] MEDS: METHYLERGONOVINE MALEATE 0.2 MG/ML AMP IM ONE (19:04)
[2024-12-09] MEDS: AMPICILLIN SOD 2GM INJ 2 GM in SODIUM CHL 0.9% 100 ML IV SCH (19:35)
[2024-12-09] MEDS: LACT. RINGERS/OXYTOCIN 20UNITS 500 ML IV ONE ×2 (20:04→20:05)
[2024-12-09] MEDS: IBUPROFEN 600 MG TAB PO PRN (20:55)
[2024-12-09] MEDS: GENTAMICIN SULFATE 320 MG in D5W 5% 100 ML IV SCH (20:56)
[2024-12-09 23:00] VITALS: BP 109/64; PULSE 96; RESP 20; TEMP 98.5; O2SAT 99
--- NOTE | 2024-12-10 01:20 | DVHPN2 ---
Progress Note Date Seen: Dec 10, 2024 Subjective S: bleeding is less, eating food without issues, denies lightheaded/dizziness, pain well controlled with oral medications, no concerns with urinating, passing flatus, no BM yet, ambulating well, vital signs Vital Sign Date Time Temp Pulse Resp B/P (MAP) Pulse Ox O2 Delivery O2 Flow Rate FiO2 12/09/24 23:00 98.5 96 20 109/64 (79) 99 98.5 Total Intake and Output 12/09/24 12/09/24 12/10/24 15:00 23:00 07:00 Output Total 300 ml 400 ml Balance -300 ml -400 ml medications Current Medications Medications Dose Ordered Sig/Shalini Route Start Time Stop Time Status Last Admin Dose Admin Lactated Ringer's 1,000 ml @ 125 mls/hr Q8H IV 12/08/24 21:15 12/09/24 14:39 125 MLS/HR David Melinda 1 pad PRN PRN TOP 12/08/24 21:15 12/09/24 23:38 1 PAD Sodium Lauryl Sulfate 240 ml PRN PRN TOP 12/08/24 21:15 12/09/24 23:37 240 ML Benzocaine 1 applic PRN PRN TOP 12/08/24 21:15 12/09/24 23:38 1 APPLIC Ondansetron HCl 4 mg Q4HPRN PRN IV 12/08/24 22:15 Ampicillin Sodium 2 gm/Sodium Chloride 100 ml @ 100 mls/hr Q6HR IV 12/09/24 18:00 12/11/24 17:59 12/09/24 19:35 100 MLS/HR Gentamicin Sulfate 0 ml @ 0 mls/hr PER PHARMACY IV 12/09/24 17:30 12/11/24 17:29 Gentamicin Sulfate 320 mg/ Dextrose 108 ml @ 100 mls/hr DAILY@1900 IV 12/09/24 19:00 12/09/24 20:56 100 MLS/HR Ibuprofen 600 mg Q6HP PRN PO 12/09/24 19:15 12/09/24 20:55 600 MG Acetaminophen 650 mg Q6HPRN PRN PO 12/09/24 19:15 Prenat Multivit/ Williamson/Iron/Folic Ac 1 DAILY PO 12/10/24 10:00 Docusate Sodium 200 mg DAILY PO 12/10/24 22:00 laboratory and microbiology Laboratory Tests 12/08/24 22:10 Test 12/08/24 22:10 Range/Units Serum Glucose 81 74-106 mg/dL Objective O: VSS Chest: heart sounds normal and lung sounds clear bilaterally Abd: soft, non-tender, fundus 1-U/firm/midline, active bowel sounds, no rebound or guarding Perineum: sutures intact, edges well approximated, no erythema/edema noted Ext: Non-tender, No edema, 2+ BLE DTRs Lochia: minimal See lab results Assessment/Plan A/P: 29yo now PPD#1 s/p Chorioamnionitis -Continue with routine PP care -Continue with amp/gent for 24 hours post- Plan discussed with: Patient Visit Coding OBGYN Date of Service: Dec 10, 2024 Billing Provider: HARESH TREVIÑO CNM MECHANICAL DESIGN ENGINEER Common Visit Codes: [id number] INP/OBS CARE(HIGH) HARESH TREVIÑO CNM Dec 10, 2024 01:19
[2024-12-10 03:00] VITALS: BP 95/51; PULSE 99; RESP 16; TEMP 98.4; O2SAT 98
[2024-12-10 05:33] LABS: Mean Corpuscular Volume 78.8 fL (80.0-100.0); Nucleated Red Blood Cells % 0.1 %
[2024-12-10 05:35] LABS: Hematocrit 25.4 % (36.0-46.0); Hemoglobin 8.5 g/dL (12.2-16.2); Mean Corpuscular Hemoglobin 26.3 pg (28.0-32.0)
[2024-12-10 08:00] VITALS: BP 101/56; PULSE 81; RESP 18; TEMP 97.8; O2SAT 98
[2024-12-10] MEDS: PRENATAL VITAMIN TAB PO SCH (09:46)
[2024-12-10] MEDS ORDERED: TRANEXAMIC ACID 1,000 mg/10ml INJ VIAL IV ONE (12:34)
[2024-12-10 14:48] VITALS: BP 109/64; PULSE 82; RESP 18; TEMP 98; O2SAT 98
[2024-12-10] MEDS: ACETAMINOPHEN 325 MG TAB PO PRN (20:02)
[2024-12-10 23:14] VITALS: BP 98/52; PULSE 81; RESP 17; TEMP 98; O2SAT 98
[2024-12-10] MEDS: DOCUSATE SOD 100 MG CAP PO SCH (23:36)
--- NOTE | 2024-12-11 00:50 | DVHPN2 ---
Progress Note Date Seen: Dec 11, 2024 Subjective S: bleeding is less, eating food without issues, denies arizmendi, lightheaded/dizziness, pain well controlled with oral medications, no concerns with urinating, passing flatus, no BM yet, ambulating well, well, BCM undecided vital signs Vital Sign Date Time Temp Pulse Resp B/P (MAP) Pulse Ox O2 Delivery O2 Flow Rate FiO2 12/10/24 23:14 98.0 81 17 98/52 (67) 98 98.0 12/10/24 19:00 Room Air Total Intake and Output 12/10/24 12/10/24 12/11/24 15:00 23:00 07:00 Output Total 500 ml Balance -500 ml medications Current Medications Medications Dose Ordered Sig/Shalini Route Start Time Stop Time Status Last Admin Dose Admin Lactated Ringer's 1,000 ml @ 125 mls/hr Q8H IV 12/08/24 21:15 12/09/24 14:39 125 MLS/HR David Lawrence 1 pad PRN PRN TOP 12/08/24 21:15 12/09/24 23:38 1 PAD Sodium Lauryl Sulfate 240 ml PRN PRN TOP 12/08/24 21:15 12/09/24 23:37 240 ML Benzocaine 1 applic PRN PRN TOP 12/08/24 21:15 12/09/24 23:38 1 APPLIC Ondansetron HCl 4 mg Q4HPRN PRN IV 12/08/24 22:15 Ampicillin Sodium 2 gm/Sodium Chloride 100 ml @ 100 mls/hr Q6HR IV 12/09/24 18:00 12/11/24 17:59 12/10/24 19:29 100 MLS/HR Gentamicin Sulfate 0 ml @ 0 mls/hr PER PHARMACY IV 12/09/24 17:30 12/11/24 17:29 Gentamicin Sulfate 320 mg/ Dextrose 108 ml @ 100 mls/hr DAILY@1900 IV 12/09/24 19:00 12/10/24 21:12 100 MLS/HR Ibuprofen 600 mg Q6HP PRN PO 12/09/24 19:15 12/10/24 14:43 600 MG Acetaminophen 650 mg Q6HPRN PRN PO 12/09/24 19:15 12/10/24 20:02 650 MG Prenat Multivit/ Curry/Iron/Folic Ac 1 DAILY PO 12/10/24 10:00 12/10/24 09:46 1 Docusate Sodium 200 mg DAILY PO 12/10/24 22:00 12/10/24 23:36 200 MG laboratory and microbiology Laboratory Tests 12/10/24 04:56 12/08/24 22:10 Test 12/08/24 22:10 Range/Units Serum Glucose 81 74-106 mg/dL Objective O: VSS Chest: heart and lung sounds normal. Abd soft, non-tender, fundus firm, midline at umbilicus, BS, no rebound or guarding, Perineum is approximated, clean and no sign of infection BLE: Non-tender, no edema Lochia - minimal Labs reviewed Problems(with codes): (1) Iron deficiency anemia in mother affecting childbirth Assessment/Plan A: 29yo s/p doing well. Rh status + Rubella status non immune Pain control with PO medications Bowel regimen encouraged with more fluids and fiber P: D/C home today Rx sent to pharmacy precautions and preeclampsia warning signs reviewed f/u with [facility] office in 2 weeks Plan discussed with: Patient ANJEL ZEE Dec 11, 2024 00:50
--- NOTE | 2024-12-11 00:53 | DVHDS2 ---
Obstetrics Discharge Summary Obstetrics Discharge Summary Date of Admission: Dec 09, 2024 Date of Discharge: Dec 11, 2024 Reason For Admission: Induction of Labor, PROM Procedures: NST Intrapartum Procedures: Spontaneous vaginal deliv Procedures: Antibiotics, Hct/date: (25.4, 12/10/24), Hgb/date: (8.5, 12/10/24) Operative Complicat: Laceration (Perineal) Discharge Diagnosis: Term -Delivered (Pt came in 12/09/24 for SROM, labor progressed normally, pt delivered on 12/10/24 @ 1808 but developed a fever. IV antibiotics given during PP period. Pt in stable condition for discharge) Discharge Information: Activity (Unrestricted), Diet (Routine), Medications (sent to rx), Instructions (no heavy lifting, pelvic rest for 6 weeks), Discharge to (Home), Accompanied by (sig other), Discarge date (12/11/24) Visit Coding OBGYN Date of Service: Dec 11, 2024 Billing Provider: MARGARITA ANGEL CNM [employer] Common Visit Codes: 32479-BQN/OBS DISCH DAY <30MIN [employer] Procedure Codes: 57679-JXPHH OB CARE,VAG DELIVERY ANJEL ZEE Dec 11, 2024 00:53
[2024-12-11 03:24] VITALS: BP 108/65; PULSE 80; RESP 17; TEMP 98.4; O2SAT 97
[2024-12-11] MEDS: FERROUS SULFATE 325mg EC TAB PO SCH (06:00)
[2024-12-11 07:00] VITALS: BP 90/45; PULSE 80; RESP 16; TEMP 98; O2SAT 97
[2024-12-11 07:41] VITALS: TEMP 36.7
[2024-12-11 15:00] VITALS: BP 100/52; PULSE 77; RESP 16; TEMP 98.1; O2SAT 96
[2024-12-11 18:00] VITALS: BP 124/75; PULSE 77; RESP 16; TEMP 98.3; O2SAT 98
[2024-12-11 19:00] VITALS: BP 124/75; PULSE 81; RESP 16; TEMP 98.3; O2SAT 98
[2024-12-11] MEDS: TETANUS-DIPTH-ACEL PERTUSSIS 0.5ML SYR Tdap IM ONE (20:27)
[2024-12-11] MEDS: MEASLES, MUMPS & RUBELLA VAC(MMRII) 0.5ML SC ONE (20:28)
== END 2024-12-11 21:00 | disposition home or self-care (01) | DRG 560 ==
LOC: LDRP 20:08 → OBSVTOIN 21:02 → LDRP 22:13
PROVIDERS: ADMIT Obstetrics & Gynecology; ATTEND Obstetrics & Gynecology
PROC: 10E0XZZ Delivery of Products of Conception, External Approach (ICD-10-PCS; principal; 2024-12-09)
PROC: 0KQM0ZZ Repair Perineum Muscle, Open Approach (ICD-10-PCS; 2024-12-09)
PROC: 3E0R3BZ Introduction of Anesthetic Agent into Spinal Canal, Percutaneous Approach (ICD-10-PCS; 2024-12-09)
PROC: 00HU33Z Insertion of Infusion Device into Spinal Canal, Percutaneous Approach (ICD-10-PCS; 2024-12-09)
DX: O41.1230 Chorioamnionitis, third trimester, not applicable or unspecified (principal); Z37.0 Single live birth; O42.02 Full-term premature rupture of membranes, onset of labor within 24 hours of rupture; O70.1 Second degree perineal laceration during delivery; Z3A.38 38 weeks gestation of pregnancy
CPT/HCPCS: 36415; 59025; 62282; 80053; 80170; 80307; 81001; 81002; 82565; 84112; 85025; 85610; 85730; 86780; 86803; 86850; 86900; 86901; 90715; 94760; 94762; 96360; 96361; 96365; 96366; G0378; J2590; J7060